=== PATIENT | male | born 1975 | race Caucasian/White ===

== ENCOUNTER 2017-03-25 09:40 | Emergency (ER) | payer OTHER ==
[~2017-03-25] VITALS: Ht 180.3 cm; Wt 98.9 kg
[~2017-03-25 09:40] MED LIST: EYED
[2017-03-25 09:46] VITALS: TEMP 36.7; Ht 180.3 cm; Wt 98.9 kg
--- NOTE | 2017-03-25 10:09 | EMERGENCY ROOM VISIT NOTE ---
ED Visit Note First contact with patient: 09:53 CHIEF COMPLAINT: Finger laceration HISTORY OF PRESENT ILLNESS: This 42-year-old male patient presents to the emergency department ambulatory after cutting the right second finger when he was trying to work on an air conditioning fan at work just prior to arrival. The bleeding has not stopped. Denies weakness or numbness of the finger. The patient had a previous injury to the same finger and he has a screw in place. He states that he does not have a DIP joint and has no range of motion at that joint at baseline. The patient denies any pain. The patient denies any other injuries. The patient's tetanus shot is not up to date. REVIEW OF SYSTEMS: A 6 system review of systems was completed with positives and pertinent negatives listed in the HPI. ALLERGIES: No known drug allergies MEDICATIONS: None PMH: None SOCIAL HISTORY: Patient does not smoke. He is employed PHYSICAL EXAM: Vital Signs: Reviewed Nurse's notes, vital signs stable. GENERAL : This is a 42-year-old male, in no acute distress, well developed, well nourished. SKIN: There is a 3 cm long laceration on the palmar aspect of the right second finger. There is a smaller laceration was approximated 2 cm that is distal to the PIP. There is a third laceration is also approximately 2 cm. A fourth laceration is quite superficial and does not require suturing. The edges gape apart with traction. There is no foreign material in the wound and it looks clean. There is mild bleeding. No deep structures such as tendons, bones, or nerves are seen in the base of the wound. The patient's range of motion is at baseline. Capillary refill less than 2 seconds. Normal sensation to light and sharp touch. EMERGENCY DEPARTMENT COURSE: I examined the patient. Using sterile technique the wound was cleaned with Betadine. 5 ml of 1% buffered lidocaine was used to perform a digital block to anesthetize the patient. The area was sterilely draped. Once the patient was numb, the wound was copiously irrigated under pressure with sterile saline. The wound was explored and there were no deep structures such as tendons, bone, or ligaments present. The laceration was repaired using a total of 12 simple interrupted 5-0 nylon sutures. The patient tolerated the procedure well. The bleeding stopped. The area was cleaned with sterile saline and dressed with bacitracin ointment and bandage. The patient was given a tetanus booster. An x-ray was obtained and reveals chronic changes but no acute fracture or foreign body The patient does not have any movement at the DIP at baseline due to previous injury. I do not see any obvious bony or tendon injury at this time. The patient was discharged home in good condition. DIAGNOSIS: Finger laceration DISCHARGE INSTRUCTIONS & TREATMENT: Keep wound clean and dry. Do not allow any crusting or dried blood to accumulate on sutures. If this occurs, use a 1:1 solution of hydrogen peroxide/water on a Q-tip to clean the wound. Use an antibiotic ointment for 3-4 days, then let wound dry. Suture removal in 10-12 days. Return sooner for any signs of infection (increasing redness, swelling, drainage). Ice and elevate for swelling and pain. Ibuprofen 600 mg every 6 hrs for pain. Keep covered when in sun until sutures removed then SPF 50 or higher for one year. Vitamin E oil if desired two weeks after suture removal for reduction of scar. Keflex every 6 hours for 7 days to help prevent infection Follow-up with an employer proved Worker's Compensation provider in 10-12 days for recheck and suture removal Current/Historical Medications Scheduled Cephalexin Monohydrate (Keflex), 500 MG PO QID Allergies Coded Allergies: No Known Allergies (Unverified , 03/25/17) Vital Signs Date Time Temp Pulse Resp B/P (MAP) Pulse Ox O2 Delivery O2 Flow Rate FiO2 03/25/17 11:42 68 18 124/84 97 03/25/17 09:46 36.7 73 18 137/85 96 Medications Administered Medications (Trade) Dose Ordered Sig/Stephanie Route Start Time Stop Time Status Last Admin Dose Admin Diphtheria/ Pertussis/Tetanus Vacc (Adacel Inj) 0.5 ml ONCE ONCE IM. 03/25/17 10:15 03/25/17 10:16 DC 03/25/17 10:30 0.5 ML Departure Information Impression Primary Impression: Laceration of finger Dispostion Home / Self-Care Condition GOOD Prescriptions Cephalexin Monohydrate (Keflex) 500 Mg Cap 500 MG PO QID for 7 Days, #28 CAP Prov: Denice Kearney PA-C 03/25/17 Referrals Zachary Zelaya M.D. (PCP) Forms HOME CARE DOCUMENTATION FORM, IMPORTANT VISIT INFORMATION, Work Instructions Additional Instructions: Off work 03/26/17. Return to work 03/29/17. Must keep right second finger clean and dry for 2 weeks. Patient Instructions ED Laceration All, [facility] Additional Instructions Keep wound clean and dry. Do not allow any crusting or dried blood to accumulate on sutures. If this occurs, use a 1:1 solution of hydrogen peroxide/ water on a Q-tip to clean the wound. Use an antibiotic ointment for 3-4 days, then let wound dry. Suture removal in 10-12 days. Return sooner for any signs of infection (increasing redness, swelling, drainage). Ice and elevate for swelling and pain. Ibuprofen 600 mg every 6 hrs for pain. Keep covered when in sun until sutures removed then SPF 50 or higher for one year. Vitamin E oil if desired two weeks after suture removal for reduction of scar. Keflex every 6 hours for 7 days to help prevent infection Follow-up with an employer proved Worker's Compensation provider in 10-12 days for recheck and suture removal Problem Qualifiers Primary Impression: Laceration of finger Encounter type: initial encounter Finger: index finger Damage to nail status: without damage Foreign body presence: without foreign body Laterality: right Qualified Codes: S61.210A - Laceration without foreign body of right index finger without damage to nail, initial encounter
[2017-03-25] MEDS ORDERED: DIPHTHERIA/TETANUS/PERTUSSIS 0.5 ML SYR/VIAL IM. ONE (10:15)
[2017-03-25] MEDS ORDERED: XYLOCAINE 1%/SOD BICARB 20 ML VIAL INFIL ONE (10:15)
--- NOTE | 2017-03-25 10:38 | DIAGNOSTIC IMAGING REPORT ---
RIGHT FINGER(S) MIN 2 VIEWS ROUTINE CLINICAL HISTORY: right second finger laceration, history of surgery Right trauma COMPARISON: None. DISCUSSION: Operative changes consistent with a fusion of the middle and distal phalanges. A linear screw is seen traversing the interphalangeal joint. There is a soft tissue laceration. No there is no acute bony abnormality. There is no evidence for soft tissue swelling. IMPRESSION: Soft tissue laceration. No acute bony abnormality. Pre-existing postoperative change. Electronically signed by: Efrain Pacheco M.D. 03/25/2017 10:37 AM Dictated Date/Time: 03/25/2017 10:28 AM
[2017-03-25] MEDS ORDERED: CEPH500C PO (11:18)
[2017-03-25 11:42] VITALS: BP 124/84; PULSE 68; O2SAT 97
== END 2017-03-25 11:43 | disposition home or self-care (01) ==
LOC: C.EDB 09:41 → C.EDA 11:43
DX: S61.210A Laceration without foreign body of right index finger without damage to nail, initial encounter (principal); W29.2XXA Contact with other powered household machinery, initial encounter; Y99.0 Civilian activity done for income or pay; Z23 Encounter for immunization